=== PATIENT | female | born 1955 | race Caucasian/White ===

== ENCOUNTER 2020-11-21 10:49 | Outpatient (CLI) | payer BC | END 2020-11-21 10:50 | disposition home or self-care (01) | LOC: CSHMAMMO 10:49 | PROVIDERS: ATTEND Internal Medicine | DX: Z53.9 Procedure and treatment not carried out, unspecified reason (principal) ==

== ENCOUNTER 2021-04-24 09:11 | Outpatient (CLI) | payer BC | END 2021-04-24 09:12 | disposition home or self-care (01) | LOC: CSHMAMMO 09:11 | PROVIDERS: ATTEND Internal Medicine | DX: Z12.31 Encounter for screening mammogram for malignant neoplasm of breast (principal) | CPT/HCPCS: 77063; 77067 ==

== ENCOUNTER 2022-04-30 09:50 | Outpatient (CLI) | payer MEDICARE | END 2022-04-30 09:51 | disposition home or self-care (01) | LOC: CSHMAMMO 09:50 | PROVIDERS: ATTEND Internal Medicine | DX: Z12.31 Encounter for screening mammogram for malignant neoplasm of breast (principal) | CPT/HCPCS: 77063; 77067 ==

== ENCOUNTER 2023-02-06 08:30 | Outpatient (CLI) | payer MEDICARE | END 2023-02-06 08:31 | disposition home or self-care (01) | LOC: CSHMRI 08:30 | PROVIDERS: ATTEND Internal Medicine Gastroenterology | DX: R79.89 Other specified abnormal findings of blood chemistry (principal); R63.4 Abnormal weight loss; K83.8 Other specified diseases of biliary tract; Z90.49 Acquired absence of other specified parts of digestive tract | CPT/HCPCS: 74183 ==

== ENCOUNTER 2023-08-20 13:09 | Outpatient (CLI) | payer MEDICARE | END 2023-08-20 13:10 | disposition home or self-care (01) | LOC: CSHMAMMO 13:09 | PROVIDERS: ATTEND Internal Medicine | DX: Z12.31 Encounter for screening mammogram for malignant neoplasm of breast (principal) | CPT/HCPCS: 77063; 77067 ==

== ENCOUNTER 2023-08-21 13:49 | Outpatient (CLI) | payer MEDICARE | END 2023-08-21 13:50 | disposition home or self-care (01) | LOC: CSHMRI 13:49 | PROVIDERS: ATTEND Internal Medicine | DX: R41.82 Altered mental status, unspecified (principal) | CPT/HCPCS: 70553 ==

== ENCOUNTER 2023-09-02 13:23 | Outpatient (CLI) | payer MEDICARE | END 2023-09-02 13:24 | disposition home or self-care (01) | LOC: CSHULT 13:23 | PROVIDERS: ATTEND Internal Medicine | DX: R59.0 Localized enlarged lymph nodes (principal) | CPT/HCPCS: 76999 ==

== ENCOUNTER → 2023-09-08 | Day surgery (SDC) | payer MEDICARE ==
[~2023-09-08] MED LIST: Midazolam HCl 5 mg/5 ml Vial ONE; Sodium Bicarbonate 2.5 MEQ/5 ML SDV ONE; fentaNYL 50 mcg/mL 1 mL Vial ONE
[2023-09-08 08:14] VITALS: BP 166/76; TEMP 98
[2023-09-08 08:30] LABS: Prothrombin Time 11.2 sec (9.5-12.1)
== END ==
LOC: CSHULT 07:15
PROVIDERS: ATTEND Physician Assistant Medical
PROC: 0FB23ZX Excision of Left Lobe Liver, Percutaneous Approach, Diagnostic (ICD-10-PCS; principal; 2023-09-08)
DX: R79.89 Other specified abnormal findings of blood chemistry (principal)
CPT/HCPCS: 10005; 85610; J2250; J3010; 88307